=== PATIENT | female | born 1980 ===

== ENCOUNTER 2019-04-06 00:16 | Emergency (ER) | payer SELFPAY ==
[~2019-04-06] VITALS: Ht 152.4 cm; Wt 71.8 kg
[2019-04-06 00:36] VITALS: BP 134/81; PULSE 57; RESP 22; Ht 152.4 cm; Wt 71.8 kg
== END 2019-04-06 03:58 | disposition left against medical advice (07) ==
LOC: E/R 00:16
DX: Z53.21 Procedure and treatment not carried out due to patient leaving prior to being seen by health care provider (principal)